=== PATIENT | female | born 1980 | race African-American/Black ===

== ENCOUNTER 2017-09-15 09:38 | Emergency (ER) | payer MEDICAID ==
[~2017-09-15] VITALS: Ht 162.6 cm; Wt 136.0 kg
[2017-09-15 09:45] VITALS: BP 157/70
== END 2017-09-15 12:16 | disposition home or self-care (01) ==
LOC: ER 10:42
DX: K11.6 Mucocele of salivary gland (principal); K11.5 Sialolithiasis; R03.0 Elevated blood-pressure reading, without diagnosis of hypertension; E03.9 Hypothyroidism, unspecified; Z88.0 Allergy status to penicillin; Z88.6 Allergy status to analgesic agent; Z88.8 Allergy status to other drugs, medicaments and biological substances
CPT/HCPCS: 99283